=== PATIENT | female | born 1970 | race African-American/Black ===

== ENCOUNTER 2019-07-03 13:38 | Outpatient (CLI) | payer OTHER, SELFPAY ==
--- NOTE | ~2019-07-03 | CT_ITS ---
EXAMINATION: CT abdomen pelvis w con INDICATION: Generalized abdominal pain TECHNIQUE: Computed tomographic images of the abdomen and pelvis were obtained after the administrati on of 100 cc of Omnipaque 350 intravenous contrast. The dose-length product (DLP) was 514.73 mGy-cm. Automated exposure control and iterative reconstruction technique were employed. COMPARISON: None available FINDINGS: Minimal dependent atelectasis is present in the lung bases. The heart size is normal. Low a ttenuation lesions of the liver measuring up to 3 mm likely reflect cysts in the absence of known mal ignancy. The spleen, pancreas, gallbladder, and adrenal glands are normal. Cysts of the kidneys measu re up to 12 mm on the right. There are punctate nonobstructing stones of the kidneys. There is no hyd ronephrosis or hydroureter. No pathologically enlarged abdominal or pelvic lymph nodes are identified . There is no free intraperitoneal gas or evidence of bowel obstruction. There are changes of hystere ctomy. There is mild lumbar spondylosis. IMPRESSION: 1. No CT correlate for the patient's symptoms. Reviewed, dictated and finalized at location A. TER MARINE
[2019-07-03 14:26] LABS: Blood Urea Nitrogen 8 mg/dL (8-26); Estimated Glomerular Filt Rate > 60
== END 2019-07-03 13:39 | disposition home or self-care (01) ==
LOC: ANHIMG 13:45
DX: R10.9 Unspecified abdominal pain (principal)
CPT/HCPCS: 74177; Q9967

== ENCOUNTER 2022-05-07 20:55 | Emergency (ER) | payer OTHER, SELFPAY ==
[2022-05-07 21:04] VITALS: BP 156/89; PULSE 89; RESP 16; TEMP 36.6; O2SAT 98
[2022-05-07 21:13] LABS: Add Urine Microscopic? YES; Appearance Urine Turbid (Clear); Bilirubin Urine 1+ (Negative); Blood Urine 3+ (Negative); Color Urine Brown (Yellow); Glucose Urine UA Trace mg/dL (Negative); Ketones Urine Trace mg/dL (Negative); Leukocyte Esterase Ur 2+ LEU/UL (Negative); Nitrate Urine Positive (Negative); Protein Urine 2+ mg/dL (Negative); pH Urine 6.5 (5.0-9.0)
[2022-05-07 21:42] LABS: RBC Urine >75 /hpf (0-2); WBC Urine >75 /hpf
[2022-05-07 21:43] LABS: WBC Clumps Urine Present /HPF
[2022-05-07 21:44] LABS: Mucus Urine Few /lpf
--- NOTE | 2022-05-07 23:50 | ED.FEMALEGU ---
HPI - Female Genitourinary General Chief complaint: Urogenital-Female Stated complaint: hematuria Time Seen by Provider: 05/07/22 23:04 Source: patient Mode of arrival: ambulatory Limitations: no limitations History of Present Illness HPI Narrative: 52-year-old female presents today with complaints of blood in her urine that started this morning. Patient did note some pelvic pressure with urination yesterday and today. She also states maybe a little bit of back pain 3 days ago. Patient denies fevers, body aches, chills, urinary urgency or frequency. Patient denies any nausea or vomiting. Patient has never had a UTI in the past but she believes that is what is going on today. Related Data Allergies Allergy/AdvReac Type Severity Reaction Status Date / Time Penicillins Allergy Unknown Unknown Verified 05/07/22 20:55 Review of Systems Review of Systems: CONSTITUTIONAL: Denies fever, chills, or sweats. EYES: Denies visual changes, redness, or discharge. ENT: Denies rhinorrhea, congestion, sore throat, or otalgia. CARDIOVASCULAR: Denies chest pain, palpitations, or edema. RESPIRATORY: Denies cough or dyspnea. GASTROINTESTINAL: Was nauseated about an hour ago but is not now. Denies abdominal painvomiting, or diarrhea. GENITOURINARY: Hematuria and pelvic pressure with urination. Denies dysuria. SKIN: Denies rash or itching. MUSCULOSKELETAL: Denies back pain, joint pain, or myalgia. Exam Narrative: GENERAL: Well-appearing, well-nourished, and in no acute distress. HEAD: Normocephalic, atraumatic. CHEST: Clear to auscultation. No respiratory distress. No wheezes rales or rhonchi HEART: Regular rate and rhythm. No murmur heard. Normal peripheral pulses. ABDOMEN: Tenderness to bladder. Soft, nontender, nondistended, normal active bowel sounds. SKIN: Warm, dry, no rash. NEURO: No focal deficits. Alert and oriented x3. PSYCH: Normal mood and affect. Course Vital Signs Vital signs: Vital Signs Temperature 97.8 F 05/07/22 21:04 Pulse Rate 89 05/07/22 21:04 Respiratory Rate 16 05/07/22 21:04 Blood Pressure 156/89 H 05/07/22 21:04 Pulse Oximetry 98 05/07/22 21:04 Oxygen Delivery Room Air 05/07/22 21:04 Temperature 97.8 F 05/07/22 21:04 Pulse Rate 89 05/07/22 21:04 Respiratory Rate 16 05/07/22 21:04 Blood Pressure 156/89 H 05/07/22 21:04 Pulse Oximetry 98 05/07/22 21:04 Oxygen Delivery Room Air 05/07/22 21:04 MDM - Female Genitourinary MDM Narrative Medical decision making narrative: 52-year-old female HPI as noted. Differentials as noted below work-up to include urinalysis with culture. Patient is afebrile, pulse 89, BP slightly elevated at 156/89. Patient is nontoxic-appearing. No CVA tenderness. Will discharge and antibiotics with plan follow-up with primary and strict return precautions reviewed. Differential Diagnosis Differential diagnosis: Likely urinary tract infection, cystitis and other (Pyelonephritis, hematuria) Medical Records Attestation: I reviewed the patient's medical records. Lab Data Attestation: I reviewed the patient's lab results. Labs: Lab Results 05/07/22 Range/Units 21:03 Urine Color Brown H (Yellow) Urine Appearance Turbid H (Clear) Urine pH 6.5 (5.0-9.0) Ur Specific [place] 1.020 (1.001-1.035) Urine Protein 2+ H (Negative) mg/dL Urine Glucose (UA) Trace H (Negative) mg/dL Urine Ketones Trace (Negative) mg/dL Ur Blood (Man) 3+ H (Negative) Urine Nitrate Positive H (Negative) Urine Bilirubin 1+ H (Negative) Urine Urobilinogen 1.0 (<2.0) mg/dL Leukocyte Esterase Rfl 2+ H (Negative) JHONATAN/UL Urine RBC >75 H (0-2) /hpf Urine WBC >75 H /hpf Urine WBC Clumps Present H (None) /HPF Urine Mucus Few H /lpf Discharge Plan Discharge Clinical Impression: Urinary tract infection Patient Disposition: Home, Self-Care Condition: Stable Instructions: Antibiotic Form, Urinary Tract Infe
[2022-05-08] MEDS: SULFAMETHOXAZOLE/TRIMETHOPRIM 800/160 MG DS TABLET 1 TAB PO (00:10)
[2022-05-08] MEDS: PHENAZOPYRIDINE HCL 100 MG TABLET 200 MG PO (00:10)
[2022-05-08] MEDS: ONDANSETRON HCL ODT 4 MG TABLET PO (00:10)
[2022-05-08 00:11] VITALS: BP 151/92; PULSE 71; RESP 16; TEMP 36.6; O2SAT 99
== END 2022-05-08 00:17 | disposition home or self-care (01) ==
PROVIDERS: Family Medicine; Emergency Provider Nurse Practitioner Family
DX: N39.0 Urinary tract infection, site not specified (principal)
CPT/HCPCS: 81001; 87077; 87086; 87186; 99283; A9270

== ENCOUNTER 2024-04-04 11:17 | Emergency (ER) | payer OTHER, SELFPAY ==
[2024-04-04] VITALS (9 sets, daily range): BP systolic 136–151; BP diastolic 86–102; PULSE 95–126; RESP 14–20; TEMP 36.6; O2SAT 95–100
--- NOTE | ~2024-04-04 | CT_ITS ---
EXAMINATION: CTA chest PE protocol DATE: 04/04/2024 14:45 INDICATION: Left arm pain. TECHNIQUE: Computed tomography angiography (CTA) of the chest was performed with 100 mL Omnipaque-350 intravenous contrast timed to evaluate the pulmonary arteries. Coronal maximum intensity projection 3D-reconstructions were created by the technologist. Automated exposure control and iterative reconst ruction technique were employed. The dose-length product was 230.15 mGy-cm. COMPARISON: Chest 2 views 04/04/2024 FINDINGS: The lungs demonstrate mild atelectasis. No pleural effusion. There are nodules in the thyro id measuring up to 19 mm. The heart size is normal. No pericardial effusion. There is no pulmonary em bolus. There is 11 mm cyst in right kidney. There is mild thoracic spondylosis. IMPRESSION: 1. No pulmonary embolus. 2. Multinodular goiter. Consider thyroid ultrasound for risk stratification. Reviewed, dictated and finalized at location A. OR MEDICAL DIRECTOR
--- NOTE | ~2024-04-04 | XR_ITS ---
EXAMINATION: XR chest 2V DATE: 04/04/2024 12:30 INDICATION: Tachycardia and left arm pain TECHNIQUE: PA and lateral views of the chest were obtained. COMPARISON: None FINDINGS: The lungs are clear with no focal airspace opacities, pulmonary edema, pleural effusion or pneumothor ax. The cardiomediastinal silhouette is normal. Mild to moderate thoracic spondylosis. IMPRESSION: 1. No acute cardiopulmonary disease. Reviewed, dictated and finalized at location B. ICAL INVESTIGATOR
--- NOTE | 2024-04-04 11:18 | ECG_ITS ---
Test Date: 2024-04-04 11:23:32 Measurements Intervals [place] Rate: 124 P: 62 VA: 84 QRS: 40 QRSD: 72 T: 53 QT: 298 QTc: 429 Interpretive Statements SINUS TACHYCARDIA WITH SHORT VA INTERVAL NONSPECIFIC ST & T-WAVE ABNORMALITY- ANTEROLAT/INF LEADS BASELINE ARTIFACT- I, AVR ,AVL, V4-V6 ABNORMAL ECG No previous ECG available for comparison Electronically Signed On 04-04-2024 12:10:41 LOCKSMITH APPRENTICE by Rex Hughes D.O.
[2024-04-04 11:50] LABS: Basophils Absolute Auto 0.1 K/mm3 (0.0-0.1); Basophils Percent Auto 0.8 % (0.2-1.2); Eosinophils Percent Auto 0.3 % (0-4.4); Hematocrit 45.3 % (37.0-47.0); Hemoglobin 14.9 g/dL (12.0-15.0); Immature Granulocyte Absolute 0.02 K/mm3 (0.00-0.031); Immature Granulocyte Percent A 0.3 % (0-0.5); Lymphocytes Absolute Auto 1.94 K/mm3 (0.9-3.2); Lymphocytes Percent Auto 30.6 % (18.3-44.2); Mean Corpuscular HGB Conc 32.9 g/dl (32-36); Mean Corpuscular Hemoglobin 29.3 pg (26-34); Mean Platelet Volume 10.4 fl (7.4-10.4); Monocytes Absolute Auto 0.5 K/mm3 (0.1-0.6); Monocytes Percent Auto 8.1 % (2.6-8.5); Neutrophils Absolute Auto 3.8 K/mm3 (1.3-6.7); Neutrophils Percent Auto 59.9 % (45.5-73.1); Platelet Count Result 378 k/mm3 (150-375); Red Blood Count 5.09 M/mm3 (4.2-5.4); Red Cell Distribution Width 13.8 % (11.5-14.5); White Blood Count 6.3 K/mm3 (4.5-10.0)
[2024-04-04 12:01] LABS: Prothrombin Time 13.6 Seconds (11.1-14.7)
[2024-04-04 12:03] LABS: Alanine Aminotransferase 25 U/L (6-35); Alkaline Phosphatase 114 U/L (38-126); Anion Gap 12 mmol/L (4-12); Aspartate Amino Transferase 28 U/L (14-36); Bilirubin,Total 0.8 mg/dL (0.2-1.3); Blood Urea Nitrogen 11 mg/dL (7-17); Calcium 10.2 mg/dL (8.4-10.2); Carbon Dioxide 24 mmol/L (22-30); Chloride 102 mmol/L (98-107); Estimated Glomerular Filt Rate > 60; Glucose 171 mg/dL (65-110); Lipase 527 U/L (23-300); Partial Thromboplastin Time 32.3 Seconds (22.3-36.8); Potassium 4.1 mmol/L (3.4-5.0); Sodium 138 mmol/L (137-145)
[2024-04-04 12:31] LABS: Troponin I < 0.012 ng/mL (0.000-0.034)
[2024-04-04] MEDS: SODIUM CHLORIDE 0.9% IV 1,000 ML 999 ML IV CONT (12:53)
[2024-04-04] MEDS: KETOROLAC 30 MG/ML VIAL (*BKC) IV PUSH (12:53)
--- NOTE | 2024-04-04 14:58 | ECG_ITS ---
Test Date: 2024-04-04 15:07:08 Measurements Intervals [place] Rate: 98 P: 55 VT: 123 QRS: 40 QRSD: 75 T: 35 QT: 342 QTc: 438 Interpretive Statements SINUS RHYTHM NONSPECIFIC T-WAVE ABNORMALITY- ANTEROLAT/INF LEADS BASELINE ARTIFACT- I, II, III, AVR, AVL, AVF BORDERLINE ECG Compared to ECG 04/04/2024 11:23:32 HEART RATE HAS DECREASED Electronically Signed On 04-04-2024 15:40:27 LIVESTOCK NUTRITIONIST by Rex Hughes D.O.
[2024-04-04 15:43] LABS: Troponin I 0.013 ng/mL (0.000-0.034)
--- NOTE | 2024-04-04 16:49 | ED.ARRPALP ---
HPI - Arrhythmia/Palpitations General Chief Complaint: Arrhythmia/Palpitations Stated Complaint: headache/ elevated HR, L arm pain Time Seen by Provider: 04/04/24 11:59 History of Present Illness HPI narrative: Patient is a 54-year-old female who presents ER with multiple issues. Main concern today is elevated heart rate. Intermittently above 100 beats per minute over the last week which is abnormal for her. She has noticed intermittent elevated blood pressures. She reports achiness in her neck and her right shoulder. Has tension headache. No fevers or chills or sweats. No exertional chest pain. No pain with deep breath. No hemoptysis. No known injury to her right side. Related Data Allergies Allergy/AdvReac Type Severity Reaction Status Date / Time Penicillins Allergy Unknown Unknown Verified 05/07/22 20:55 Review of Systems Review of Systems: All systems reviewed & are unremarkable except as noted in HPI and below Constitutional: Constitutional: Reports no additional constitutional complaints Cardiovascular: Cardiovascular: Denies chest pain, Reports rapid heart rate, Denies radiating jaw, neck or arm pain and Denies slow heart rate Respiratory: Respiratory: Reports no additional respiratory complaints Gastrointestinal: Gastrointestinal: Reports no additional gastrointestinal complaints Genitourinary: Genitourinary: Reports no additional female genitourinary complaints Neurologic: Reports system reviewed and no additional complaints, except as documented PMFSH Past Medical History Medical History (Updated 04/04/24 @ 16:56 by Lopez Ramos MD) Hypertension Surgical History Surgical History (Updated 04/04/24 @ 16:52 by Lopez Ramos MD) History of appendectomy History of hysterectomy Exam Narrative: GENERAL: Well-appearing, well-nourished, and in no acute distress. HEAD: Normocephalic, atraumatic. ENT: Mucous membranes moist. NECK: Supple. CHEST: Clear to auscultation. No respiratory distress. HEART: tachycardic and regular. Normal peripheral pulses. ABDOMEN: Soft, nontender, nondistended. EXTREMITIES: Normal range of motion. No edema. SKIN: Warm, dry, no rash. NEURO: Alert and oriented x3. PSYCH: Normal mood and affect. Course Course Emergency Course: Unremarkable evaluation. Troponin negative x2. No chest pain. No pulmonary edema/pulmonary embolism/ pneumonia. TSH normal. Discussed goiter on imaging. Recommend follow-up with PCP. Will give cardiology phone number. Recommend avoiding caffeine. Vital Signs Vital signs: Vital Signs Temperature 97.8 F 04/04/24 11:26 Pulse Rate 126 H 04/04/24 11:26 Respiratory Rate 17 04/04/24 11:26 Blood Pressure 149/102 H 04/04/24 11:26 Pulse Oximetry 100 04/04/24 11:26 Oxygen Delivery Room Air 04/04/24 11:26 Temperature 97.8 F 04/04/24 11:26 Pulse Rate 110 H 04/04/24 16:01 Respiratory Rate 20 04/04/24 16:01 Blood Pressure 148/97 H 04/04/24 16:01 Pulse Oximetry 97 04/04/24 16:01 Oxygen Delivery Room Air 04/04/24 11:26 MDM - Arrhythmia/Palpitations Lab Data 04/04/24 11:31 04/04/24 11:31 Labs: Lab Results 04/04/24 04/04/24 Range/Units 11:31 14:59 WBC 6.3 (4.5-10.0) K/mm3 RBC 5.09 (4.2-5.4) M/mm3 Hgb 14.9 (12.0-15.0) g/dL Hct 45.3 (37.0-47.0) % MCV 89.0 (80-100) fl MCH 29.3 (26-34) pg MCHC 32.9 (32-36) g/dl RDW 13.8 (11.5-14.5) % Plt Count 378 H (150-375) k/mm3 MPV 10.4 (7.4-10.4) fl Immature Gran % (Auto) 0.3 (0-0.5) % Neut % (Auto) 59.9 (45.5-73.1) % Lymph % (Auto) 30.6 (18.3-44.2) % Brooke % (Auto) 8.1 (2.6-8.5) % Eos % (Auto) 0.3 (0-4.4) % Baso % (Auto) 0.8 (0.2-1.2) % Lymph # (Auto) 1.94 (0.9-3.2) K/mm3 Brooke # (Auto) 0.5 (0.1-0.6) K/mm3 Eos # (Auto) 0.0 (0-0.3) K/mm3 Baso # (Auto) 0.1 (0.0-0.1) K/mm3 Abs Immat Gran (auto) 0.02 (0.00-0.031) K/mm3 Absolute Neuts (auto) 3.8 (1.3-6.7) K/mm3 Absolute Nucleated RBC 0.000 (0.0-0.012) K/mm3 Nucleated RBC % 0.0 (0.0-0.2) % PT 13.6 (11.1-14.7) Seconds INR 1.0 APTT 32.3 (22.3-36.8) Seconds Sodium 138 (137-145) mmol/L Potassium 4.1 (3.4-5.0) mmol/L Chloride 102 (98-107) mmol/L Carbon Dioxide 24 (22-30) mmol/L Anion Gap 12 (4-12) mmol/L BUN 11 (7-17) mg/dL Creatinine 1.10 H (0.7-1.0) mg/dL Estim Creat Clear Calc Not Reportable Estimated GFR > 60 (59 - ) Glucose 171 H (65-110) mg/dL Calcium 10.2 (8.4-10.2) mg/dL Total Bilirubin 0.8 (0.2-1.3) mg/dL AST 28 (14-36) U/L ALT 25 (6-35) U/L Alkaline Phosphatase 114 (38-126) U/L Troponin I < 0.012 0.013 (0.000-0.034) ng/mL Total Protein 10.0 H (6.3-8.2) g/dL Albumin 5.0 (3.5-5.1) g/dL Lipase 527 H (23-300) U/L TSH (Reflex) 2.100 (0.465-4.68) uIU/mL Imaging Data Radiologist's impression: ITS Impressions Chest X-Ray 04/04/24 12:32 IMPRESSION: 1. No acute cardiopulmonary disease. Chest CTA 04/04/24 14:49 IMPRESSION: 1. No pulmonary embolus. 2. Multinodular goiter. Consider thyroid ultrasound for risk stratification. ECG Data EKG #1: ECG completion date: 04/04/24 ECG completion time: 15:07 EKG Interpretation: normal rate (98), sinus rhythm, no ectopy, non-specific ST changes, normal QRS and NL axis Discharge Plan Discharge Clinical Impression: Sinus tachycardia Patient Disposition: Home, Self-Care Condition: Stable Instructions: Heart Palpitations (ED) Additional Instructions: Please return to the emergency department if you develop severe and persistent chest pain, difficulty breathing, dizziness, leg swelling or if you are coughing up blood as these can be signs of a medical emergency. Please call your doctor for a follow up appointment to determine the need for further testing. Prescriptions: No Action sulfamethoxazole-trimethoprim [Bactrim DS] 800-160 mg tablet 1 tablet PO Q12H Qty: 20 0RF phenazopyridine [Pyridium] 200 mg tablet 200 mg PO TID PRN (Reason: pain) Qty: 5 0RF Follow-up/Referrals: Raphael Prabhakar MD [Physician] - 1 Week [place], [Primary Care Provider] - 1 Week
== END 2024-04-04 17:23 | disposition home or self-care (01) ==
PROVIDERS: Emergency Medicine; Emergency Provider Emergency Medicine
DX: R00.0 Tachycardia, unspecified (principal); I10 Essential (primary) hypertension; R94.31 Abnormal electrocardiogram [ECG] [EKG]
CPT/HCPCS: 36415; 71046; 71275; 80053; 83690; 84443; 84484; 85025; 85610; 85730; 93005; 96361; 96374; 99284; J1885; J7030; Q9967

== ENCOUNTER 2024-10-09 01:42 | Day surgery (SDC) | payer OTHER, SELFPAY ==
[2024-10-03 10:19] VITALS: BMI 30.3
[2024-10-09] VITALS (7 sets, daily range): BP systolic 84–152; BP diastolic 50–91; PULSE 74–90; RESP 16–20; TEMP 36.1; O2SAT 96–100
--- OUTSIDE RECORDS SUMMARY | 2024-10-09 01:45 | XMS_ITS | Referral Summary ---
Author Organization [facility] Address [address] [place] [address] Care Team Providers Care Abe Teacher Name Role Phone Sil Pearl MD Unavailable [phone] Aria Burns MD Primary Care Provider [phone] Allergies Active Allergy Reactions Criticality Noted Date Comments Adhesive Swelling High 06/09/2023 Byrd skin Latex Rash Medium 05/02/2024 Penicillins Other (See comments) Low 07/01/2016 Childhood allergy Varicella-Zoster Virus Glycoprotein E, Recombinant Other (See comments) Low 06/09/2023 Bump under skin and burning and Itching Medications celecoxib (CeleBREX) 200 mg capsule Take 200 mg by mouth daily as needed. 8 Active ondansetron (ZOFRAN) 4 mg tablet Take 1 tablet (4 mg total) by mouth every 8 (eight) hours as needed 8 Active VESICARE 10 mg tabletIndicatio ns:Urinary Urgency Take 1 tablet (10 mg total) by mouth nightly 8 Active spironolactone (ALDACTONE) 50 mg tabletIndicatio ns:acne Take 2 tablets (100 mg total) by mouth nightly 8 Active amLODIPine (NORVASC) 10 mg tablet Take 1 tablet (10 mg total) by mouth every morning Active DULoxetine DR (CYMBALTA) 60 mg capsuleIndicati ons:Anxiety with Depression Take 60 mg by mouth every morning. Active carboxymethylce llulose (REFRESH TEARS) 0.5 % ophthalmic solutionIndicat ions:Dry Eye Administer 1 drop into both eyes as needed Active Humira,CF, Pen 40 mg/0.4 mL pen injector kit 4 Active Active Problems Problem Noted Date Diagnosed Date Hx of colonic polyps 04/11/2020 Overview (04/11/2020): Added automatically from request for surgery [id number] Assessment & Plan (04/11/2020 3:53 PM LEARNING OPERATIONS SPECIALIST): Schedule colonoscopy for follow-up surveillance. Encounter for screening colonoscopy 04/11/2020 Overview (04/12/2020): Added automatically from request for surgery [id number] Pelvic pain in female 02/22/2018 Overview (02/22/2018): Added automatically from request for surgery [id number] Assessment & Plan (04/11/2020 3:53 PM LEARNING OPERATIONS SPECIALIST): Patient has complained of lower abdominal pain and tenderness noted on examination. Will get ultrasound of the abdomen Adnexal cyst 02/22/2018 Overview (02/22/2018): Added automatically from request for surgery [id number] Arthralgia of multiple joints 09/09/2012 Social History Tobacco Use Types Packs/Day Years Used Date Smoking Tobacco: Never Smokeless Tobacco: Never Alcohol Use Standard Drinks/Week Comments No 0 (1 standard drink = 0.6 oz pur e alcohol) Comments No Sex and Gender Information Value Date Recorded Sex Assigned at Not on file Legal Sex Female 6:53 AM LEARNING OPERATIONS SPECIALIST Gender Identity Not on file Sexual Orientation Not on file Last Filed Vital Signs Vital Sign Reading Time Taken Comments Blood Pressure 120/84 05/02/2024 10:40 AM LEARNING OPERATIONS SPECIALIST Pulse 87 05/02/2024 10:40 AM LEARNING OPERATIONS SPECIALIST Temperature 36.3 C (97.4 F) 05/10/2020 10:00 AM LEARNING OPERATIONS SPECIALIST Respiratory Rate 18 05/10/2020 10:00 AM LEARNING OPERATIONS SPECIALIST Oxygen Saturation 98% 05/02/2024 10:40 AM LEARNING OPERATIONS SPECIALIST Inhaled Oxygen Concentration - - Weight 74.5 kg (164 lb 3.2 oz) 05/02/2024 10:40 AM LEARNING OPERATIONS SPECIALIST Height 149.9 cm (4' 11 ) 05/02/2024 10:40 AM LEARNING OPERATIONS SPECIALIST Body Mass Index 33.16 05/02/2024 10:40 AM LEARNING OPERATIONS SPECIALIST Plan of Treatment Not on file Procedures Procedure Name Priority Date/Time Associated Diagnosis Comments COLONOSCOPY 05/10/2020 8:06 AM LEARNING OPERATIONS SPECIALIST from Last 3 Months or Most Recently Relevant to Health Maintenance Results * COLONOSCOPY (05/10/2020 8:06 AM LEARNING OPERATIONS SPECIALIST) Anatomical Region Laterality Modality Other Narrative Procedure Note Mike Mccauley MD - 05/10/2020 8:06 AM CST [facility] Patient Name: Judie Route Procedure Date: 05/10/2020 8:06 AM Date of : 1970 Admit Type: Outpatient Age: 50 Gender: Female Attending MD: Mike Mccauley M.D. Room: [facility] ENDOSCOPY ROOM 1 Note Status: Finalized Patient Profile: This is a 50 year old female. History of polyps.Noted the patient has complained of pain in the left lower quadrant area. This pain chronic and dull. Imagingwere unremarkable. No family history of colon cancer. Procedure: Colonoscopy Indications: High risk colon cancer surveillance: Personalhistory of colonic polyps, Last colonoscopy within the past5 years Referring MD: Mike Mccauley M.D., Aria Burns M.D. Providers: Mike Mccauley M.D. Impression: - One 3 mm polyp in the cecum, removed with a jumbo cold forceps. Resected and retrieved. - Internal hemorrhoids. Recommendation: - Await pathology results. - Repeat colonoscopy in 5 years for screeningpurposes. - Continue present medications. Medicines: Monitored Anesthesia Care Complications: No immediate complications. Estimated Blood Loss: Estimated blood loss: none. Procedure: Pre-Anesthesia Assessment: - Prior to the procedure, a History and Physical was performed, and patient medications and allergieswere reviewed. The patient's tolerance of previous anesthesia was also reviewed. The risks and benefitsof the procedure and the sedation options and riskswere discussed with the patient. All questions were answered, and informed consent was obtained. Prior Anticoagulants: The patient has taken no previous anticoagulant or antiplatelet agents. ASA Grade Assessment: II - A patient with mild systemicdisease. After reviewing the risks and benefits, the patientwas deemed in satisfactory condition to undergo the procedure. The benefits, risks and alternatives of theprocedure and sedation were discussed and informed consent was obtained. All questions were answered. Please referto the signed informed consent document in the medical record. Bowel prep was administered using a splitdose. The bowel preparation used was Miralax. The bowel preparation used was bisacodyl tablets. The scopewas passed under direct vision. The PediatricColonoscope [id number]-[id number] was introduced through the anusand advanced to the the cecum, identified by appendiceal orifice and ileocecal valve. The quality of thebowel preparation was excellent. Findings: The perianal and digital rectal examinations were normal. The appendiceal orifice appeared normal. A 3 mm polyp was found in the cecum. The polyp was semi-sessile. The polyp was removed with a jumbo cold forceps. Resection and retrieval were complete. The ascending colon appeared normal. The transverse colon was unremarkable. The descending colon sigmoid colon were normal. Internal hemorrhoids were found during retroflexion. The hemorrhoids were medium-sized. Electronically signed by Mike Mccauley M.D. Mike Mccauley M.D. 05/10/2020 9:44:45 AM Number of Addenda: 0 Note Initiated On: 05/10/2020 8:06 AM Procedure Code(s): --- Professional --- 50417, Colonoscopy, flexible; with biopsy, single or multiple Diagnosis Code(s): --- Professional --- Z86.010, Personal history of colonic polyps K64.8, Other hemorrhoids D12.0, Benign neoplasm of cecum CPT copyright 2017 [employer]. All rights reserved. The codes documented in this report are preliminary and upon health services manager reviewmay be revised to meet current compliance requirements. Recognized by the [employer] for promoting quality in endoscopy Mike Mccauley MD ENDOSCOPY PROCEDURES Final Result from Last 3 Months or Most Recently Relevant to Health Maintenance [place] [address] [facility] CLAIMS [facility] [facility] Advance Directives For more information, please contact: [phone] * Full Code (Latest Code Status on File) Date Activated Date Inactivated Comments 05/10/2020 8:13 AM 05/10/2020 2:25 PM * Full Code Date Activated Date Inactivated Comments 05/10/2020 8:13 AM 05/10/2020 8:13 AM * Full Code Date Activated Date Inactivated Comments 03/04/2018 3:52 PM 03/04/2018 8:16 PM Care Teams Abe Teacher Relationship Specialty Start Date End Date Aria Burns MD [address] [address] PCP - General Family Medicine 03/06/20 Sil Pearl MD [address] [place] [address] Referring Physician Obstetrics and Gynecology 06/24/18
--- OUTSIDE RECORDS SUMMARY | 2024-10-09 01:45 | XMS_ITS | Clinical Summary ---
Author Organization [facility] Address [address] [place] [id number] Care Team Providers Care Director Camp Name Role Phone Christen Shaw DO Primary Care Provider Elisabeth vailable Social History Tobacco Use Types Packs/Day Years Used Date Smoking Tobacco: Never Assessed Comments Unknown Sex and Gender Information Value Date Recorded Sex Assigned at Not on file Legal Sex Female 7:52 PM CDT Gender Identity Not on file Sexual Orientation Not on file Plan of Treatment Health Maintenance Due Date Last Done Comments Cervical Cancer Screening Pa p Smear (Age 30 to 64) Every 3 Years 1970 Colorectal Cancer Screening Colonoscopy (10 Years) 1970 Annual Physical 01/02/1971 Hepatitis C 01/02/1986 DTaP, Tdap and Td Vaccines ( 1 - Tdap) 01/02/1987 Hepatitis B Vaccines (1 of 3 - 19+ 3-dose series) 01/02/1987 Cervical Cancer Screening Pa p with HPV Testing (Age 30 to 64) Every 5 Years 01/02/1998 Cervical Cancer Screening with HPV 01/02/1998 Mammogram Screening 2008 Pneumococcal Vaccine: 50+ Ye ars (1 of 1 - PCV) 01/02/2018 Zoster Vaccines (1 of 2) 01/02/2018 COVID-19 Vaccine ( - 2023-2 5 season) 2024 Meningococcal B Vaccine Aged Out No l onger eligible based on patient's age to complete this topic Meningococcal Vaccine Aged Out No shahrzad ricardo eligible based on patient's age to complete this topic RSV Immunizations Under 20 Months Aged Out No longer eligible based on patient's age to complete this topic Advance Directives Documents on File Type Date Recorded Patient Custom Frame Assembler Expl anation Advance Directives and Livin g Will 01/25/2013 POWER OF LEADERSHIP DEVELOPMENT CONSULTANT Care Teams Director Camp Relationship Specialty Start Date End Date Christen Shaw DO [facility] - General 08/21/15
--- OUTSIDE RECORDS SUMMARY | 2024-10-09 01:45 | XMS_ITS | Clinical Summary ---
Author Organization [facility] Address [address] [place] [address] Care Team Providers Care Elevator Adjuster Name Role Phone Christen Shaw MD Primary Care Provider Adam Fortune DO Unavailable Source Comments [facility]non-owned Affiliates and Associated Physician Practices is amultiple site organization consisting of ambulatory clinics and hospital sitesin [place], [place], [place] and [place]. This disclosure is being madepursuant to the Care Everywhere program and may not contain all information available regarding this patient. Last updated 18.[facility] Allergies Active Allergy Reactions Criticality Noted Date Comments Adhesive Sensitivity Swelling High 06/09/2023 Byrd skin Penicillins Other Low 07/01/2016 Childhood allergy Zoster Vac Recomb Adjuvanted Other 024 Bump under skin and burning and Itching Medications * Be aware that medications may not be up to date on this document. Alwaysverify current medications with the patient. DULoxetine (CYMBALTA) 30 MG capsule Take 30 mg by mouth DAILY. 30 capsule 3 07/09/19 17 Active Additional Information Patient not taking.Reported on 12/08/2023 spironolactone (ALDACTONE) 100 MG tablet Take 1 (one) tablet by mouth DAILY 06/16/19 17 Active raNITIdine (ZANTAC) 150 MG tablet Take 1 (one) tablet by mouth BID 07/01/19 17 Active lisinopril (PRINIVIL;ZESTRI L) 5 MG tablet Take 1 (one) tablet by mouth DAILY 07/01/19 17 Active vitamin D3 (CHOLECACIFEROL) 5000 UNITS Take 1 (one) tablet by mouth DAILY 07/01/19 17 Active estrogens, conjugated, (PREMARIN) 0.625 MG/GM vaginal cream 05/01/20 16 Active amLODIPine (Norvasc) 2.5 MG tablet Take 1 (one) tablet by mouth every morning Active DULoxetine (Cymbalta) 60 MG capsule Take 1 (one) capsule by mouth every morning Active tretinoin (Retin-A) 0.05 % cream 08/08/19 22 Active ketoconazole (Nizoral) 2 % shampoo For external use. 03/25/20 23 Active estradiol (Vivelle-Dot) 0.0375 MG/24HR patch 1q week Active cephalexin (Keflex) 500 MG capsule Finish the prescription. 05/20/20 23 Active amLODIPine (Norvasc) 5 MG tablet Take 1 (one) tablet by mouth 03/25/20 23 Active Multiple Vitamins-Iron (DAILY VITES/IRON PO) Daily Vites/Iron tablet 1qd Active Ascorbic Acid (Vitamin C) 100 MG Vitamin C 1qd Active vitamin D3 (Cholecalciferol ) 100 UNITS TABS Vitamin D 1qd Active folic acid (Folvite) 1 MG tablet Take 2 (two) tablets by mouth once daily 180 tablet 3 06/09/19 24 Active Additional Information Patient not taking.Reported on 07/26/2024 Methotrexate Sodium (methotrexate, PF,) 50 MG/2ML injection Inject 0.8 mL subcutaneously every 7 days 14 mL 06/09/19 24 Active Additional Information Patient not taking.Reported on 12/08/2023 insulin syringe-needle (Bd Ultrafine) 29G X 1/2 1 ML syringeIndicatio ns:Inflammatory arthritis Use 1 syringe to inject MTX subcutaneously every 7 days. (100 syringes/box). 15 Each 06/09/19 24 Active Additional Information Patient not taking.Reported on 07/26/2024 calcium carbonate (Tums) 500 MG chew tablet Take 1 (one) tablet by mouth daily with food Active Humira, 2 Pen, 40 MG/0.4ML injection INJECT 0.4 ML UNDER THE SKIN EVERY 14 DAYS 0.8 mL 3 04/07/20 24 Active polyethylene glycol 3350 (Miralax) 17 GM/SCOOP powder 07/13/19 25 Active betamethasone dipropionate (Diprosone) 0.05 % ointment 04/12/20 24 Active carboxymethylcel lulose sodium (Refresh Tears) 0.5 % ophthalmic solution 1 (one) drop by Ophthalmic route as needed Active clobetasol (Temovate) 0.05 % ointment 07/15/19 24 Active vitamin D, ergocalciferol, (Drisdol) 1.25 MG (79107 UT) capsule 09/16/19 24 Active esomeprazole (NexIUM) 40 MG capsule 90 (ninety) capsules 09/10/19 24 Active Flonase Allergy Relief 50 MCG/ACT nasal spray [place] 2 (two) sprays into the nose 05/05/20 24 Active famotidine (Pepcid) 40 MG tablet 09/10/19 24 Active gabapentin (Neurontin) 300 MG capsule 90 cap(s), 0 Refill(s), 0 total refill(s), Soft Stop 04/10/20 24 Active ondansetron, disintegrating, (Zofran ODT) 4 MG tablet 07/13/19 25 Active triamcinolone acetonide (Kenalog) 0.1 % ointment 07/15/19 24 Active Active Problems Problem Noted Date Diagnosed Date Acne 10/28/2016 Fibromyalgia 10/28/2016 Dorsalgia 10/28/2016 Migraine without status migrainosus, not intract able 10/28/2016 Abdominal pain 10/28/2016 Encounters Date Type Department Care Team Description 07/26/2024 2:20 PM FIRE COORDINATOR Office Visit [facility] - Rheumatology [address] [place] [phone] Joycelyn Rodriguez MD Inflammatory arthritis (Primary Dx) from Last 3 Months Family History Medical History Relation Name Comments Arthritis - Osteo Mother Relation Name Status Comments Mother Social History Tobacco Use Types Packs/Day Years Used Date Smoking Tobacco: Never Smokeless Tobacco: Never Tobacco Cessation:Counseling Given: Not Answered Alcohol Use Standard Drinks/Week Comments No 0 (1 standard drink = 0.6 oz pur e alcohol) PHQ-2 Answer Date Recorded Patient Health Questionnaire-2 Score 0 07/26/2024 Comments Unknown Sex and Gender Information Value Date Recorded Sex Assigned at Not on file Legal Sex Female 5:23 PM FIRE COORDINATOR Gender Identity Not on file Sexual Orientation Not on file Last Filed Vital Signs Vital Sign Reading Time Taken Comments Blood Pressure 130/82 07/26/2024 2:01 PM FIRE COORDINATOR Pulse 98 07/26/2024 2:01 PM FIRE COORDINATOR Temperature 36.3 C (97.4 F) 07/26/2024 2:01 PM FIRE COORDINATOR Respiratory Rate 16 07/26/2024 2:01 PM FIRE COORDINATOR Oxygen Saturation 100% 07/26/2024 2:01 PM FIRE COORDINATOR Inhaled Oxygen Concentration - - Weight 71.1 kg (156 lb 12.8 oz) 07/26/2024 2:01 PM FIRE COORDINATOR Height 149.9 cm (4' 11 ) 12/08/2023 10: 21 AM CDT Body Mass Index 31.67 12/08/2023 10:21 AM CDT Plan of Treatment Upcoming Encounters Date Type Department Care Team (Late st Contact Info) Description 11/08/2024 1:20 PM CDT Office Visit [facility] - Rheumatology [address], [address] [place] [address] Joycelyn Rodriguez MD [address] [place] [address] Health Maintenance Due Date Last Done Comments COLOGUARD (AGES 45-75) - COLON CA SCREENING [address] COLONOGRAPHY - COLON CA SCREENING 1968 FIT - COLON CA SCREENING 1970 FLEX SIG - COLON CA SCREENING 1970 MAMMOGRAM 1970 PAP SMEAR 1968 HIV SCREENING 01/02/1983 DTAP/TDAP/TD VACCINES (1 - Tdap) 01/02/1987 HEPATITIS B VACCINE (1 of 3 - 19+ 3-dose series) 01/02/1987 PNEUMOCOCCAL VACCINE 50+ (1 of 1 - PCV) 01/02/2018 ZOSTER VACCINE (1 of 2) 01/02/2018 COVID-19 VACCINE (3 - season) 2024 04/29/2022, 04/09/2021 INFLUENZA VACCINE (Season Ended) 2025 SCREENING FOR DIABETES 08/19/2027 , 09/09/2023, 06/10/2023, Additional history exists LIPID TESTING 05/02/2029 05/02/2024, 09/09/2023 COLONOSCOPY - COLON CA SCREENING 09/15/2033 09/16/2023, 05/10/2020 Colorectal Cancer Screening 09/15/2033 DEPRESSION SCREENING Completed 07/26/2024, 07/25/19 HEPATITIS C SCREENING Completed 08/18/2024 , 09/09/2023, 07/01/2016 HIB VACCINE Aged Out No longer eligi ble based on patient's age to complete this topic HPV VACCINE Aged Out No longer eligi ble based on patient's age to complete this topic MENINGOCOCCAL (Group B) VACCINE SHARED DECISION-MAKING Aged Out No longer eligible based on patient's age to complete this topic MENINGOCOCCAL GROUPS A/C/Y/W VACCINE Aged Out No longer eligible based on patient's age to complete this topic Procedures Procedure Name Priority Date/Time Associated Diagnosis Comments C-REACTIVE PROTEIN Routine 08/18/2024 11 :08 AM CDT Inflammatory arthritis ERYTHROCYTE SEDIMENTATION RATE Routine 08/18/2024 11:08 AM CDT Inflammatory arthritis COMPREHENSIVE METABOLIC PANEL Routine 08/18/2024 11:08 AM CDT Inflammatory arthritis CBC W AUTO DIFFERENTIAL Routine 08/18/2024 11:08 AM CDT Inflammatory arthritis QUANTIFERON TB-GOLD Routine 08/18/2024 1 1:08 AM CDT Inflammatory arthritis HEPATITIS SCREEN ACUTE ([facility]) Routine 08/18/2024 11:07 AM CDT Inflammatory arthritis LIPID PROFILE Routine 09/09/2023 10:21 AM CDT Psoriatic arthritis from Last 3 Months or Most Recently Relevant to Health Maintenance Results * (ABNORMAL) C-REACTIVE PROTEIN (08/18/2024 11:08 AM CDT) C-Reactive Protein 11(H) 0 - 10 mg/L [facility] ACCOUNT BILL Blood BLOOD SPECIMEN / Unknown 08/18/2024 11:08 AM CDT 08/18/2024 Narrative [facility] ACCOUNT BILL - 08/19/2024 8:11 AM CDT Performed at: [address] [place] [address] [id number] Hot Pipe Gauger: Alexis Prince PhD, Phone: [phone] Joycelyn Rodriguez MD LAB - CHEMISTRY ORDERABLES Final Result [facility] ACCOUNT BILL [address] [place] [address] * QUANTIFERON TB-GOLD (08/18/2024 11:08 AM CDT) [facility] QuantiFERON Incubation Incubation performed. [facility] ACCOUNT BILL QuantiFERON-TB Gold Plus Negative Negative [facility] ACCOUNT BILL Comment: No response to M tuberculosis antigens detected. Infection with M tuberculosis is unlikely, but high risk individuals should be considered for additional testing (ATS/IDSA/CDC Clinical Practice Guidelines, 2017). The reference range is an Antigen minus Nil result of <0.35 IU/mL. Chemiluminescence immunoassay methodology Performed at: [address] [place] [address] [id number] Hot Pipe Gauger: Alexis Prince PhD, Phone: [phone] QuantiFERON Criteria Comment [facility] ACCOUNT BILL Comment: QuantiFERON-TB Gold Plus is a qualitative indirect test for M tuberculosis infection (including disease) and is intended for use in conjunction with risk assessment, radiography, and other medical and diagnostic evaluations. The QuantiFERON-TB Gold Plus result is determined by subtracting the Nil value from either TB antigen (Ag) value. The Mitogen tube serves as a control for the test. QuantiFERON TB1 Ag Value 0.08 IU/mL [facility] ACCOUNT BILL QuantiFERON TB2 Ag Value 0.04 IU/mL [facility] ACCOUNT BILL QuantiFERON Nil Value 0.04 IU/mL [facility] ACCOUNT BILL QuantiFERON Mitogen Value >10.00 IU/mL [facility] ACCOUNT BILL Blood BLOOD SPECIMEN / Unknown 08/18/2024 11:08 AM CDT 08/18/2024 Narrative [facility] ACCOUNT BILL - 08/22/2024 7:09 PM CDT Performed at: 01 - [facility] [id number] Hot Pipe Gauger: Alexis Prince PhD, Phone: [phone] Joycelyn Rodriguez MD LAB - CHEMISTRY ORDERABLES Final Result Performing Organization Address [facility] Co de Phone Number [facility] ACCOUNT BILL [address] [place] [address] * ERYTHROCYTE SEDIMENTATION RATE (08/18/2024 11:08 AM CDT) Pathologist [facility] Erythrocyte Sedimentation Rate Westergren 32 0 - 40 mm/hr [facility] ACCOUNT BILL Blood BLOOD SPECIMEN / Unknown 08/18/2024 11:08 AM CDT 08/18/2024 Narrative [facility] ACCOUNT BILL - 08/19/2024 7:09 AM CDT Performed at: [facility] [id number] Hot Pipe Gauger: Alexis Prince PhD, Phone: [phone] Joycelyn Rodriguez MD LAB - HEMATOLOGY ORDERABLES Brandy l Result Performing Organization Address [facility] Co de Phone Number [facility] ACCOUNT BILL [address] [place] [address] * CBC WITH DIFFERENTIAL (08/18/2024 11:08 AM CDT) [facility] WBC 5.6 3.4 - 10.8 x10E3/uL [facility] ACCOUNT BILL RBC 4.66 3.77 - 5.28 x10E6/uL [facility] ACCOUNT BILL Hemoglobin 13.1 11.1 - 15.9 g/dL [facility] ACCOUNT BILL Hematocrit 41.4 34.0 - 46.6 % [facility] ACCOUNT BILL MCV 89 79 - 97 fL [facility] ACCOUNT BILL MCH 28.1 26.6 - 33.0 pg [facility] ACCOUNT BILL MCHC 31.6 31.5 - 35.7 g/dL [facility] ACCOUNT BILL RDW 13.7 11.7 - 15.4 % [facility] ACCOUNT BILL Platelet Count 365 150 - 450 x10E3/uL [facility] ACCOUNT BILL Granulocytes % 39 Not Estab. % [facility] ACCOUNT BILL Lymphocytes % 51 Not Estab. % [facility] ACCOUNT BILL Monocytes % 8 Not Estab. % [facility] ACCOUNT BILL Eosinophils % 1 Not Estab. % [facility] ACCOUNT BILL Basophils % 1 Not Estab. % [facility] ACCOUNT BILL Granulocytes Absolute 2.2 1.4 - 7.0 x10E3/uL [facility] ACCOUNT BILL Lymphocytes Absolute 2.9 0.7 - 3.1 x10E3/uL [facility] ACCOUNT BILL Monocytes Absolute 0.4 0.1 - 0.9 x10E3/uL [facility] ACCOUNT BILL Eosinophils Absolute 0.0 0.0 - 0.4 x10E3/uL [facility] ACCOUNT BILL Basophils Absolute 0.1 0.0 - 0.2 x10E3/uL [facility] ACCOUNT BILL Immature Granulocytes 0 Not Estab. % [facility] ACCOUNT BILL Immature Granulocytes Absolute 0.0 0.0 - 0.1 x10E3/uL [facility] ACCOUNT BILL Blood BLOOD SPECIMEN / Unknown 08/18/2024 11:08 AM CDT 08/18/2024 Narrative [facility] ACCOUNT BILL - 08/19/2024 7:09 AM CDT Performed at: 01 - [address] [id number] Hot Pipe Gauger: Alexis Prince PhD, Phone: [phone] Joycelyn Rodriguez MD LAB - HEMATOLOGY ORDERABLES Brandy l Result [facility] ACCOUNT BILL [address] [place] [address] * (ABNORMAL) COMPREHENSIVE METABOLIC PANEL (08/18/2024 11:08 AM CDT) Glucose 112(H) 70 - 99 mg/dL [facility] ACCOUNT BILL BUN 14 6 - 24 mg/dL [facility] ACCOUNT BILL Creatinine 0.93 0.57 - 1.00 mg/dL [facility] ACCOUNT BILL eGFR by CKD-EPI 72 >59 mL/min/1.7 3 [facility] ACCOUNT BILL BUN/Creatinine Ratio 15 9 - 23 [facility] ACCOUNT BILL Sodium 139 134 - 144 mmol/L [facility] ACCOUNT BILL Potassium 4.8 3.5 - 5.2 mmol/L [facility] ACCOUNT BILL Chloride 103 96 - 106 mmol/L [facility] ACCOUNT BILL CO2 23 20 - 29 mmol/L [facility] ACCOUNT BILL Calcium 9.6 8.7 - 10.2 mg/dL [facility] ACCOUNT BILL Protein Total 7.1 6.0 - 8.5 g/dL [facility] ACCOUNT BILL Albumin 4.3 3.8 - 4.9 g/dL [facility] ACCOUNT BILL Globulin Total 2.8 1.5 - 4.5 g/dL [facility] ACCOUNT BILL Bilirubin Total 0.4 0.0 - 1.2 mg/dL [facility] ACCOUNT BILL Alkaline Phosphatase 113 44 - 121 IU/L [facility] ACCOUNT BILL AST 19 0 - 40 IU/L [facility] ACCOUNT BILL ALT 13 0 - 32 IU/L [facility] ACCOUNT BILL Blood BLOOD SPECIMEN / Unknown 08/18/2024 11:08 AM CDT 08/18/2024 Narrative [facility] ACCOUNT BILL - 08/19/2024 7:09 AM CDT Performed at: - [facility] [id number] Hot Pipe Gauger: Alexis Prince PhD, Phone: [phone] Joycelyn Rodriguez MD LAB - CHEMISTRY ORDERABLES Final Result [facility] ACCOUNT BILL [address] [place] [address] * HEPATITIS SCREEN ACUTE ([facility]) (08/18/2024 11:07 AM CDT) Hepatitis A Virus Antibody IgM Negative Negative [facility] ACCOUNT BILL Comment: A negative anti-HAV IgM result suggests no recent or current HAV infection. Hepatitis B Virus Surface Antigen Negative Negative [facility] ACCOUNT BILL Hepatitis B Core Virus Antibody IgM Negative Negative [facility] ACCOUNT BILL Hepatitis C Antibody Non Reactive Non Reactive [facility] ACCOUNT BILL Comment: Performed at: - [facility] [id number] Hot Pipe Gauger: Alexis Prince PhD, Phone: [phone] Interpretation Comment [facility] ACCOUNT BILL Comment: Not infected with HCV unless early or acute infection is suspected (which may be delayed in an immunocompromised individual), or other evidence exists to indicate HCV infection. Blood BLOOD SPECIMEN / Unknown 08/18/2024 11:07 AM CDT 08/18/2024 Narrative [facility] ACCOUNT BILL - 08/19/2024 7:09 AM CDT Performed at: - [facility] [id number] Hot Pipe Gauger: Alexis Prince PhD, Phone: [phone] Joycelyn Rodriguez MD LAB - CHEMISTRY ORDERABLES Final Result Performing Organization Address [facility] de Phone Number [facility] ACCOUNT BILL [address] [place] [address] * LIPID PROFILE (09/09/2023 10:21 AM CDT) [facility] Signature Cholesterol 163 100 - 199 mg/dL [facility] ACCOUNT BILL Triglycerides 60 0 - 149 mg/dL [facility] ACCOUNT BILL HDL Cholesterol 54 >39 mg/dL [facility] ACCOUNT BILL VLDL Calculated 12 5 - 40 mg/dL [facility] ACCOUNT BILL LDL Calculated 97 0 - 99 mg/dL [facility] ACCOUNT BILL Comment NOT AVAILABLE [facility] ACCOUNT BILL Comment: FASTING Result cannot be obtained for this observation. Blood BLOOD SPECIMEN / Unknown 09/09/2023 10:21 AM CDT 09/09/2023 Narrative Resulting Agency Comment Lab Testing performed at: [facility] [id number] Joycelyn Rodriguez MD LAB - CHEMISTRY ORDERABLES Final Result Performing Organization Address [facility] de Phone Number [facility] ACCOUNT BILL [address] [place] [address] from Last 3 Months or Most Recently Relevant to Health Maintenance Insurance [facility] Care Teams Elevator Adjuster Relationship Specialty Start Date End Date Christen Shaw MD PCP - General 01/20/16 Adam Toney DO [address] [address] Resident Family Medicine 01/26/23
--- OUTSIDE RECORDS SUMMARY | 2024-10-09 01:45 | XMS_ITS ---
Author Organization [facility] Address [address] [place], [place] [address] Care Team Providers Care Maintenance Manager Name Role Phone Answer, Declined Unavailable Unavailable HALLE CADENA Unavailable [phone] REASON FOR VISIT BILATERAL FEET CHECK Encounters Encounter Location Date Provider Diagnosis [facility] [address] [facility] [address] [place], [place] [id number] 11/04/2023 HALLE CADENA Plan Of Treatment No Information Progress Notes * Judie JIMENEZDOB: 8 (54 yo F)Acc No.[id number]:11/04/2023 Patient: Judie OLIVAREZ Provider: Addison Cadena DPM :1970 A ge:53 Y S ex:Female Date:11/04/2023 Address:[facility] [address] [id number] Subjective: * Chief Complaints: * 1 . BILATERAL FEET CHECK. * Medical History: Objective: * Vitals: Assessment: Plan: * Treatment: * Billing Information: * Visit Code: * Procedure Codes: * Electronic signature of HALLE CADENA DPM on 10/09/2024 at 01:45 AM CDT Sign off status: Pending * Provider: Addison Cadena DPM Date: 11/04/2023 Generated for Carlyi ng/Fajacquie/eTransmitting on: 10/09/2024 01:45 AM CDT
--- OUTSIDE RECORDS SUMMARY | 2024-10-09 01:45 | XMS_ITS | Clinical Summary ---
Author Organization [facility] Address [address] [place] [address] Care Team Providers Care Maintenance Supervisor Mechanical Name Role Phone Sil Pearl MD Unavailable [phone] Aria Burns MD Primary Care Provider [phone] Allergies Active Allergy Reactions Criticality Noted Date [...] (04/11/2020): Added automatically from request for surgery [id number] Assessment & Plan (04/11/2020 3:53 PM CLINICAL FIELD SPECIALIST): Schedule colonoscopy for follow-up surveillance. Encounter for screening colonoscopy 04/11/2020 Overview (04/12/2020): Added automatically from request for surgery [id number] Pelvic pain in female 02/22/2018 Overview (02/22/2018): Added automatically from request for surgery [id number] Assessment & Plan (04/11/2020 3:53 PM CLINICAL FIELD SPECIALIST): Patient has complained of lower abdominal pain and tenderness noted on examination. Will get ultrasound of the abdomen Adnexal cyst 02/22/2018 Overview (02/22/2018): Added automatically from request for surgery [id number] Arthralgia of multiple joints 09/09/2012 Surgical History Surgery Date Site/Laterality Comments HYSTERECTOMY OOPHORECTOMY SECTION APPENDECTOMY COLONOSCOPY [id number] 3-4 yrs ago in [place] COLONOSCOPY 05/10/2020 Medical History Medical History Date Comments Mass of stomach Hypertension Frequent headaches Acid reflux Palpitation Family History Medical History Relation Name Comments Liver cancer Father Diabetes Mother Relation Name Status Comments Father Mother Alive Social History Tobacco Use Types Packs/Day Years Used Date Smoking Tobacco: Never Smokeless Tobacco: Never Alcohol Use Standard Drinks/Week Comments No 0 (1 standard drink = 0.6 oz pur e alcohol) Comments No Sex and Gender Information Value Date Recorded Sex Assigned at Not on file Legal Sex Female 6:53 AM CLINICAL FIELD SPECIALIST Gender Identity Not on file Sexual Orientation Not on file Obstetrics History Para Term AB IAB SAB Ectopic Multiple Livin g Live Births 2 2 2 0 2 Date Outcome GA Total Labor Labor/2nd/3rd Weight Sex Type Anes PTL Arlette A1 A5 Name Clin Term Term Last Filed Vital Signs Vital Sign Reading Time Taken Comments Blood Pressure 120/84 05/02/2024 10:40 AM CLINICAL FIELD SPECIALIST Pulse 87 05/02/2024 10:40 AM CLINICAL FIELD SPECIALIST Temperature 36.3 C (97.4 F) 05/10/2020 10:00 AM CLINICAL FIELD SPECIALIST Respiratory Rate 18 05/10/2020 10:00 AM CLINICAL FIELD SPECIALIST Oxygen Saturation 98% 05/02/2024 10:40 AM CLINICAL FIELD SPECIALIST Inhaled Oxygen Concentration - - Weight 74.5 kg (164 lb 3.2 oz) 05/02/2024 10:40 AM CLINICAL FIELD SPECIALIST Height 149.9 cm (4' 11 ) 05/02/2024 10:40 AM CLINICAL FIELD SPECIALIST Body Mass Index 33.16 05/02/2024 10:40 AM CLINICAL FIELD SPECIALIST Plan of Treatment Health Maintenance Due Date Last Done Comments Breast Cancer Screening-Mammogram 1970 Depression Screening 1970 Hepatitis C Screening 1970 Regular Well Visit/Exam 18-64 01/02/1986 Zoster Vaccine (2 of 2) 07/08/2023 05/13/2023 Covid-19 Vaccine (5 - season) 2024 04/29/2022, 04/09/2021, 09/10/2020, Additional history exists Influenza Vaccine (#1) 2024 Colon Cancer Screening-Colonoscopy 05/10/2030 05/10/2020 DTaP/Tdap/Td Vaccine (3 - Td or Tdap) 05/13/2033 05/13/2023, 12/28/2008 Hepatitis B Screening Completed 11/23/2007 , 04/11/2007, 03/09/2007 Colon Cancer Screening-CT Colonography Discontinued 05/10/2020 Colon Cancer Screening-DNA Stool Discontinued 05/10/2020 Colon Cancer Screening-FIT Discontinued 05/10/2020 Colon Cancer Screening-Sigmoidoscopy Discontinued 05/10/2020 Pneumococcal vaccine <65 Aged Out No longer eligible based on patient's age to complete this topic Procedures Procedure Name Priority Date/Time Associated Diagnosis Comments COLONOSCOPY 05/10/2020 8:06 AM CLINICAL FIELD SPECIALIST from Last 3 Months or Most Recently Relevant to Health Maintenance Results * COLONOSCOPY (05/10/2020 8:06 AM CLINICAL FIELD SPECIALIST) Anatomical Region Laterality Modality Other Narrative Procedure Note Mike Mccauley MD - 05/10/2020 8:06 AM [facility] Patient Name: Judie Jimenez Procedure Date: 05/10/2020 8:06 AM Date of : 1970 Admit Type: Outpatient Age: 50 Gender: Female Attending MD: Mike Mccauley M.D. Room: [facility] ENDOSCOPY ROOM 1 Note Status: Finalized Patient [...] passed under direct vision. The PediatricColonoscope [id number]-[id number] was introduced through the anusand advanced to [...] 8:06 AM Procedure Code(s): --- Professional --- 00621, Colonoscopy, flexible; with biopsy, single or multiple Diagnosis Code(s): --- Professional --- Z86.010, Personal history of colonic polyps K64.8, Other hemorrhoids D12.0, Benign neoplasm of cecum CPT copyright 2017 [employer]. All rights reserved. The codes documented in this report are preliminary and upon celluloid trimmer reviewmay be revised to meet current compliance requirements. Recognized by the [employer] [employer] for promoting quality in endoscopy Mike Mccauley MD ENDOSCOPY PROCEDURES Final Result from Last 3 Months or Most Recently Relevant to Health Maintenance [place] [address] [facility] CLAIMS [facility] Advance Directives For more information, please contact: [phone] * Full Code (Latest Code Status on File) Date Activated Date Inactivated Comments 05/10/2020 8:13 AM 05/10/2020 2:25 PM * Full Code Date Activated Date Inactivated Comments 05/10/2020 8:13 AM 05/10/2020 8:13 AM * Full Code Date Activated Date Inactivated Comments 03/04/2018 3:52 PM 03/04/2018 8:16 PM Care Teams Maintenance Supervisor Mechanical Relationship Specialty Start Date End Date Aria Burns MD [address] [address] PCP - General Family Medicine 03/06/20 Sil Pearl MD [facility] [place] [address] Referring Physician Obstetrics and Gynecology 06/24/18
--- OUTSIDE RECORDS SUMMARY | 2024-10-09 01:45 | XMS_ITS | Patient Health Record ---
Author Organization [facility] Address [address] [place], [place] [id number] Care Team Providers Care Associate Professor Of Literacy Name Role Phone Answer, Declined Unavailable Unavailable HALLE GOODSON Unavailable [phone] Allergies Allergen (clinical drug ingredient) Drug/Non Drug Allergy documented on EMR Reaction Allergy Type Onset Date Status Penicillin Unknown Drug Allergy Active Reason For Referral No Information Medications Medication SIG (Take, Route, Frequency, Duration) Notes Start Date End Date Status Medrol 4 MG as directed Orally 04/30/2023 Active Medrol 4 MG as directed Orally 10/15/2023 Active Social History Tobacco Use: Social History Observation Description Date Details (start date - stop date) Never Smoker NA - NA Tobacco Control (Standard) Question Answer Notes Tobacco use: Nonsmoker Vital Signs Height-cm 132.08 cm 10/15/2023 Weight-kg 66.68 kg 10/15/2023 Height 52 in 10/15/2023 Weight 147 lbs 10/15/2023 BMI 38.22 kg/m2 10/15/2023 Encounters Encounter Location Date Provider Diagnosis [facility] [address] [place], [place] [id number] 10/15/2023 HALLE GOODSON Plantar fasciitis M72.2 ; Ingrowing nail L60.0 ; Cellulitis of right toe L03.031 ; Cellulitis of left toe L03.032 ; Other acquired deformities of right foot M21.6X1 ; Other acquired deformities of left foot M21.6X2 ; Achilles tendinitis of right lower extremity M76.61 ; Achilles tendinitis of left lower extremity M76.62 ; Pain in right foot M79.671 and Left foot pain M79.672 [facility] [address] [place], [place] [id number] 10/15/2023 HALLE GOODSON Assessments Encounter Date Diagnosis (ICD Code) Assessment Notes Treatment Notes Treatment Clinical Notes Section Notes 10/15/2023 Plantar fasciitis (ICD-10 - M72.2) 10/15/2023 Ingrowing nail (ICD-10 - L60.0) Recommended slant back procedure, pt declined. 10/15/2023 Cellulitis of right toe (ICD-10 - L03.031) 10/15/2023 Cellulitis of left toe (ICD-10 - L03.032) 10/15/2023 Other acquired deformities of right foot (ICD-10 - M21.6X1) 10/15/2023 Other acquired deformities of left foot (ICD-10 - M21.6X2) 10/15/2023 Achilles tendinitis of right lower extremity (ICD-10 - M76.61) 10/15/2023 Achilles tendinitis of left lower extremity (ICD-10 - M76.62) 10/15/2023 Pain in right foot (ICD-10 - M79.671) 10/15/2023 Left foot pain (ICD-10 - M79.672) Plan Of Treatment No Information Insurance Providers Payer Name Payer Address Payer Phone Subscriber Number Group Number Insured Name Patient Relationship to Insured Coverage Start Date Coverage End Date [facility] [address] [place] [phone] [id number] Judie Jimenez Self - patient is the insured Medical (General) History Medical History History ICD Code fibromyalgia rheumatoid arthritis
[2024-10-09] MEDS: LACTATED RINGERS 1,000 ML 150 ML IV CONT (10:40)
--- NOTE | 2024-10-09 10:57 | WPDANESEPPF ---
Anes - Initial Pre Proc Eval Procedure: Operation Date: 10/09/24 11:30 Proposed Procedures p Esophagogastroduodenoscopy&Screen Colon - Bolivar Bernard MD Date/Time: 10/09/24 10:57 Surgeon: Bolivar Bernard MD Pre Op Diagnosis: Encounter for screening for malignant neoplasm of Patient Data Age: 54 Gender: F Height: 1.5 m Weight: 68.4 kg Last Vital Signs Temp 36.1 C L 10/09/24 10:31 Pulse 85 10/09/24 10:31 Resp 18 10/09/24 10:31 BP 152/91 H 10/09/24 10:31 Pulse Ox 99 10/09/24 10:31 O2 Del Method Room Air 10/09/24 10:31 Allergies Allergy/AdvReac Type Severity Reaction Status Date / Time Penicillins Allergy Unknown Unknown Verified 10/09/24 10:29 adhesive AdvReac Intermediate burning Verified 10/09/24 10:29 Home Medications Medication Instructions Recorded Confirmed Type phenazopyridine 200 mg tablet 200 mg PO TID PRN pain #5 tabs 05/07/22 10/03/24 Rx (Pyridium) amlodipine 10 mg tablet 10 mg PO DAILY 10/03/24 10/09/24 History Patient hx anesthesia problems: none Family hx anesthesia problems: none Results Review: All pre-operative results and documents have been reviewed as part of the pre-operative evaluation. [facility] Past Medical History Medical History Hypertension Surgical History Surgical History History of hysterectomy History of appendectomy Social History Social History Smoking status: Never smoker Alcohol intake: never Substance use: never Substance use type: does not use Living arrangements: with family Spiritual care concerns: No Anes - Eval Final PreProcedure Day of Procedure 10/09/24 10:57 Patient weight: overweight Heart: regular rate and rhythm Lungs: clear to auscultation Airway: Mallampati scale class II Neurological: alert and oriented Last oral intake: >/= 8 hours ASA classification: II Emergent: no Anesthetic plan: proceed Anesthesia type and monitoring: general GIVS and standard monitoring Results Review: All pre-operative results and documents have been reviewed as part of the pre-operative evaluation. Informed Consent: The patient's anesthetic plan and its attendant risks and benefits were discussed with the patient/family/POA. Questions were solicited and answers provided to the satisfaction of the patient/family/POA.
[2024-10-09] MEDS: diphenhydrAMINE HCl INJ 50 MG/ML VIAL 25 MG IV PUSH (11:03)
--- NOTE | 2024-10-09 11:09 | PM.HPGS ---
History of Present Illness History of Present Illness Consent: Risks, benefits, and alternatives have been discussed and questions answered. Patient agrees to proceed with procedure. Chief complaint: Encounter for screening for malignant neoplasm of Narrative: Judie Jimenez is a 54 year old female with nausea, also intermittent lower abdominal pain, last colonoscopy about 4 years ago Review of Systems Review of Systems: All systems reviewed & are unremarkable except as noted in HPI and below PMFSH Past Medical History Medical History (Updated 10/09/24 @ 11:09 by Bolivar Bernard MD) Lower abdominal pain Nausea Hypertension Surgical History Surgical History History of hysterectomy History of appendectomy Social History Social History Smoking status: Never smoker Alcohol intake: never Substance use: never Substance use type: does not use Living arrangements: with family Spiritual care concerns: No Meds Home Medications and Allergies Home Medications Medication Instructions Recorded Confirmed Type phenazopyridine 200 mg tablet 200 mg PO TID PRN pain #5 tabs 05/07/22 10/03/24 Rx (Pyridium) amlodipine 10 mg tablet 10 mg PO DAILY 10/03/24 10/09/24 History Allergies Allergy/AdvReac Type Severity Reaction Status Date / Time Penicillins Allergy Unknown Unknown Verified 10/09/24 10:29 adhesive AdvReac Intermediate burning Verified 10/09/24 10:29 Vital Signs Vital Signs - 24 hr 10/09/24 10:31 Temperature 97 F L Pulse Rate 85 Respiratory Rate 18 Blood Pressure 152/91 H Pulse Oximetry 99 Oxygen Delivery Room Air Exam Const: General: comfortable and no acute distress HENMT: Face/Nose/Sinus: Normal nares present Eyes: General: appearance normal, both eyes and all related structures Neck: Neck: no JVD Resp: Auscultation: clear to auscultation bilaterally Cardio: Rate: regular rate Rhythm: regular rhythm GI: Inspection: non-distended GI Palp: Yes Soft to palpation Skin: General skin exam: normal color Neuro: General: gait normal Speech: normal speech Extrem: General: normal to inspection Psych: Mental Status: mental status grossly normal Assessment and Plan Assessment and plan (1) Nausea: Code(s): R11.0 - Nausea Status: Acute Assessment and Plan: egd (2) Lower abdominal pain: Code(s): R10.30 - Lower abdominal pain, unspecified Status: Acute Assessment and Plan: colonoscopy
--- NOTE | 2024-10-09 11:22 | SUR.OPER ---
EGD ended at 1117, colon began at 1121.
== END 2024-10-09 12:30 | disposition home or self-care (01) ==
PROVIDERS: Visit Provider Internal Medicine Gastroenterology
PROC: 0DJ08ZZ Inspection of Upper Intestinal Tract, Via Natural or Artificial Opening Endoscopic (ICD-10-PCS; CPT 45378; principal; 2024-10-09 11:30)
DX: Z12.11 Encounter for screening for malignant neoplasm of colon (principal); K64.8 Other hemorrhoids; K29.50 Unspecified chronic gastritis without bleeding; I10 Essential (primary) hypertension; Z98.890 Other specified postprocedural states
CPT/HCPCS: 43239; 45378; 88305; J1200; J2003; J2704; J7120